=== PATIENT | male | born 1975 | race Two or more races ===

== ENCOUNTER 2024-04-30 19:29 | Emergency (ER) | payer OTHER, MEDICAID ==
[~2024-04-30] VITALS: Ht 167.6 cm; Wt 77.3 kg
[2024-04-30 20:39] LABS: Urine Bacteria FEW /hpf (None Seen); Urine Blood Negative /uL (Negative); Urine Clarity Clear (Clear); Urine Color Light-Yellow (Yellow); Urine Protein, UAD Negative (Negative); Urine Specific Gravity 1.009 (1.001-1.035); Urine Squamous Epithelial Cell FEW /hpf (<5); Urine Urobilinogen Normal (Negative); Urine WBC 5 /HPF (0-3)
[2024-04-30 20:49] LABS: Amphetamine Screen, Urine Pos (NEGATIVE)
[2024-04-30 20:53] LABS: Barbiturate Scree,Urine Neg (NEGATIVE); Benzodiazephine Screen, Urine Neg (NEGATIVE); Cannabinoid Screen, Urine Neg (NEGATIVE); Cocaine Screen, Urine Neg (NEGATIVE); Opiate Scree,Urine Neg (NEGATIVE); Phencyclidine Screen, Urine Neg (NEGATIVE)
[2024-04-30 21:06] LABS: Chloride 104 mmol/L (98-107); Potassium 4.4 mmol/L (3.5-5.1); Sodium 142 mmol/L (136-145)
[2024-04-30 21:07] LABS: Anion Gap 5 (5-15)
[2024-04-30 21:08] LABS: Calcium 9.9 mg/dL (8.7-10.4)
[2024-04-30 21:10] LABS: Basophils # (auto) 0.1 10 ^3/uL (0-0.2); Eosinophils # (auto) 0.5 10 ^3/uL (0-0.8); Eosinophils % (auto) 6.6 % (0.0-7.0); Hematocrit 46.6 % (41.0-53.0); Hemoglobin 15.5 g/dL (13.5-17.5); Lymphocytes # (auto) 2.5 10 ^3/uL (0.4-5.4); Mean Corpuscular Hemoglobin 30.1 pg (28.0-32.0); Mean Corpuscular Hgb Conc. 33.2 g/dL (32.0-36.0); Mean Corpuscular Volume 90.5 fL (80.0-100.0); Monocytes # (auto) 0.8 10 ^3/uL (0-1.3); Monocytes % (auto) 10.6 % (0.0-12.0); Neutrophils # (auto) 3.8 10 ^3/uL (1.6-8.6); Neutrophils % (auto) 49.8 % (37.0-80.0); Nucleated Red Blood Cells % 0.1 %; Platelet Count (auto) 363 10^3/uL (140-450); Red Blood Cells 5.15 10^6/uL (4.5-5.90); Red Cell Distribution Width 14.1 % (11.8-14.3); White Blood Cell 7.7 10^3/uL (4.4-10.8)
[2024-04-30 21:12] LABS: Glucose 95 mg/dL (74-106)
[2024-04-30 21:13] LABS: BUN/Creatinine Ratio 11.1 (10.0-20.0); Blood Urea Nitrogen 10 mg/dL (9-23)
[2024-04-30 21:17] LABS: Blood Alcohol < 3.0 mg/dL (<10); Carbon Dioxide 33 mmol/L (20-31)
[2024-04-30] MEDS ORDERED: ACET500T58 PO (21:45)
[2024-04-30] MEDS ORDERED: BACDST PO (21:45)
--- NOTE | 2024-04-30 21:45 | ED.PDOC ---
General HPI Comments This patient is a recently homeless 48-year-old male who arrives the ED today for evaluation of urinary discomfort. Patient states that the urinary pain began yesterday and has continued into today. Patient denies any fever nausea or vomiting. Patient was requesting a social service consult to aid him as he has only been homeless for two days and was hoping to receive assistance with housing concerns. Vital signs were stable on arrival. Chief Complaint: Urinary Time Seen by MD: 19:32 Reviewed notes: Nurses Notes Allergies: Coded Allergies: NO KNOWN ALLERGIES (Unverified , 04/30/24) Information Source: Patient Mode of Arrival: Ambulatory Severity: Moderate Timing: Days Duration: Since onset Prehospital treatment: None Onset: Spontaneous Symptoms: Dysuria History of: None associated signs and symptoms: Dysuria Past Medical History PAST MEDICAL HISTORY: Denies Surgical History: Denies all surgeries Family History Family History: Reviewed,noncontributory to illness, No family hx of Cancer, No family hx of DM, No family hx of Heart jimmy, No family hx of HTN, No family hx ofKidney jimmy, No family hx of Liver jimmy, No family hx of Lung jimmy, No family hx of Stroke Social History Smoker: Non-Smoker Alcohol: Denies ETOH Use Drugs: Methamphetamine Lives In: Homeless Constitutional: denies: chills, diaphoresis, fatigue, fever, malaise, sweats, weakness, others EENTM: denies: blurred vision, double vision, ear bleeding, ear discharge, ear drainage, ear pain, ear ringing, eye pain, eye redness, hearing loss, mouth pain, mouth swelling, nasal discharge, nose bleeding, nose congestion, nose pain, photophobia, tearing, throat pain, throat swelling, voice changes, others Respiratory: denies: cough, hemoptysis, orthopnea, SOB at rest, shortness of breath, SOB with excertion, stridor, wheezing, others Cardiovascular: denies: chest pain, dizzy spells, diaphoresis, Dyspnea on exertion, edema, irregular heart beat, left arm pain, lightheadedness, palpitations, PND, syncope, others Gastrointestinal: denies: abdomen distended, abdominal pain, blood streaked bowels, constipated, diarrhea, dysphagia, difficulty swallowing, hematemesis, melena, nausea, poor appetite, poor fluid intake, rectal bleeding, rectal pain, vomiting, others Genitourinary: reports: dysuria; denies: burning, flank pain, frequency, hematuria, incontinence, penile discharge, penile sore, pain, testicle pain, testicle swelling, urgency, others Neurological: denies: dizziness, fainting, headache, left sided numbness, left sided weakness, numbness, paresthesia, pre-existing deficit, right sided numbness, right sided weakness, seizure, speech problems, tingling, tremors, weakness, others Musculoskeletal: denies: back pain, gout, joint pain, joint swelling, muscle pain, muscle stiffness, neck pain, others Integumetry: denies: bruises, change in color, change in hair/nails, dryness, laceration, lesions, lumps, rash, wounds, others Allergic/Immunocompromised: denies: Difficulty Healing, Frequent Infections, Hives, Itching, others Hematologic/Lymphatic: denies: anemia, blood clots, easy bleeding, easy bruising, swollen glands, others Endocrine: denies: excessive hunger, excessive sweating, excessive thirst, excessive urination, flushing, intolerance to cold, intolerance to heat, unexplained weight gain, unexplained weight loss, others Psychiatric: denies: anxiety, bipolar disorder, depression, hopeless, panic disorder, schizophrenia, sleepless, suicidal, others Physical Exam General Appearance: Moderate Distress ([id number] distress due to urinary concerns as well as anxiety related to his homelessness.), Normal HEENT: Normal ENT Inspection, Pharynx Normal, TMs Normal Neck: Full Range of Motion, Non-Tender, Normal, Normal Inspection Respiratory: Chest Non-Tender, Lungs Clear, No Accessory Muscle Use, No Respiratory Distress, Normal Breath Sounds Cardiovascular: No Edema, No JVD, No Murmur, No Gallop, Normal Peripheral Pulses, Regular Rate/Rhythm Breast Exam: Deferred Gastrointestinal: No Organomegaly, Non Tender, No Pulsatile Mass, Normal Bowel Sounds, Soft Genitalia: Deferred Pelvic: Deferred Rectal: Deferred Extremities: No calf tenderness, Normal capillary refill, Normal inspection, Normal range of motion, Non-tender, No pedal edema Neurologic: Alert, No Motor Deficits, Normal Affect, Normal Mood, No Sensory Deficits Cerebellar Function: Normal Reflexes: Normal Skin: Dry, Normal Color, Warm Lymphatic: No Adenopathy Was a procedure done? Was a procedure done?: No Differential Diagnosis Kidney stone (Female): N/A Urinary Problem (Male): Other (UTI, pyelonephritis, illicit drug use, sepsis, electrolyte abnormality) X-Ray, Labs, Meds, VS Vital Signs Date Time Temp Pulse Resp B/P (MAP) Pulse Ox O2 Delivery O2 Flow Rate FiO2 04/30/24 20:12 98.5 80 20 101/68 (79) 96 Lab Test 04/30/24 20:25 04/30/24 20:10 Range/Units White Blood Count 7.7 4.4-10.8 10^3/uL Red Blood Count 5.15 4.5-5.90 10^6/uL Hemoglobin 15.5 13.5-17.5 g/dL Hematocrit 46.6 41.0-53.0 % Mean Corpuscular Volume 90.5 80.0-100.0 fL Mean Corpuscular Hemoglobin 30.1 28.0-32.0 pg Mean Corpuscular Hemoglobin Concent 33.2 32.0-36.0 g/dL Red Cell Distribution Width 14.1 11.8-14.3 % Platelet Count 363 140-450 10^3/uL Mean Platelet Volume 7.9 6.9-10.8 fL Neutrophils (%) (Auto) 49.8 37.0-80.0 % Lymphocytes (%) (Auto) 32.0 10.0-50.0 % Monocytes (%) (Auto) 10.6 0.0-12.0 % Eosinophils (%) (Auto) 6.6 0.0-7.0 % Basophils (%) (Auto) 1.0 0.0-2.0 % Neutrophils # (Auto) 3.8 1.6-8.6 10 ^3/uL Lymphocytes # (Auto) 2.5 0.4-5.4 10 ^3/uL Monocytes # (Auto) 0.8 0-1.3 10 ^3/uL Eosinophils # (Auto) 0.5 0-0.8 10 ^3/uL Basophils # (Auto) 0.1 0-0.2 10 ^3/uL Nucleated Red Blood Cells 0.1 % Sodium Level 142 136-145 mmol/L Potassium Level 4.4 3.5-5.1 mmol/L Chloride Level 104 98-107 mmol/L Carbon Dioxide Level 33 H 20-31 mmol/L Anion Gap 5 5-15 Blood Urea Nitrogen 10 9-23 mg/dL Creatinine 0.90 0.700-1.30 mg/dL Glomerular Filtration Rate Calc 104 >90 mL/min BUN/Creatinine Ratio 11.1 10.0-20.0 Serum Glucose 95 74-106 mg/dL Calcium Level 9.9 8.7-10.4 mg/dL Plasma/Serum Blood Alcohol < 3.0 <10 mg/dL Urine Color Light-yellow Yellow Urine Clarity Clear Clear Urine pH 5.0 5.0-9.0 Urine Specific [place] 1.009 1.001-1.035 Urine Protein Negative Negative Urine Ketones Negative Negative Urine Blood Negative Negative /uL Urine Nitrite Negative Negative Urine Bilirubin Negative Negative Urine Urobilinogen Normal Negative mg/dL Urine Leukocyte Esterase 1+ Negative /uL Urine RBC 1 0 - 3 /hpf Urine Microscopic WBC 5 H 0-3 /HPF Urine Squamous Epithelial Cells Few <5 /hpf Urine Bacteria Few H None Seen /hpf Urine Glucose Normal Normal mg/dL Urine Opiates Screen Neg NEGATIVE Urine Fentanyl Screen Neg NEGATIVE Urine Barbiturates Screen Neg NEGATIVE Urine Phencyclidine Screen Neg NEGATIVE Urine Amphetamines Screen Pos NEGATIVE Urine Benzodiazepines Screen Neg NEGATIVE Urine Cocaine Screen Neg NEGATIVE Urine Cannabinoids Screen Neg NEGATIVE X-Ray, Labs, Meds, VS Comment All studies performed the ED were evaluated by me personally. Serum studies were unremarkable for any acute global concern. Urinalysis revealed a urinary tract infection and drug screen profile was confirmation for methamphetamine use. Patient will remain in the ED and received his 1st dose of antibiotics while awaiting social service consult. Time of 1ST Reevaluation: 21:43 Reevaluation 1ST: Improved Consultation: PCP Patient Education/Counseling: Diagnosis, Treatment Family Education/Counseling: Diagnosis, Treatment Departure 1 Departure Time of Disposition: 21:43 Impression: Primary Impression: UTI (urinary tract infection) Disposition: HOME / SELF CARE / HOMELESS Condition: Stable Additional Instructions: Advised patient utilize antibiotics as directed until completion. Patient should practice good hydration and healthy nutrition throughout. e-Prescriptions Acetaminophen (Acetaminophen) 500 Mg Tab 500 MG PO Q4HP PRN, #20 TAB Prov: MARK STEELE PAC 04/30/24 Sulfamethoxazole W/Trimethopri (Bactrim Ds Tablet) 1 Tab Tb 1 TAB PO BID for 5 Days, #10 TAB Prov: MARK STEELE PAC 04/30/24 Discharged With: Self Critical Care Note Critical Care Time?: No Stability Stability form required: No Heart Score Heart Score: Heart Score Response (Comments) Value History N/A 0 EKG N/A 0 Age N/A 0 Risk Factors N/A 0 Troponin N/A 0 Total 0 MARK STEELE PAC Apr 30, 2024 21:45
[2024-04-30] MEDS: SULFAMETHOX W/TRIMETH(800/160MG) DS TAB PO ONE (23:19)
[2024-04-30 23:21] VITALS: BP 114/80; PULSE 58; RESP 18; TEMP 97.6; O2SAT 98
== END 2024-04-30 23:21 | disposition left against medical advice (07) ==
LOC: ER 19:29
DX: N39.0 Urinary tract infection, site not specified (principal); Z59.00 Homelessness unspecified; Z79.899 Other long term (current) drug therapy
CPT/HCPCS: 36415; 80048; 80307; 80320; 81001; 85025

== ENCOUNTER 2025-01-13 13:28 | Inpatient (IN) | payer OTHER, MEDICAID ==
[~2025-01-13] VITALS: Ht 167.6 cm; Wt 78.8 kg
[~2025-01-13 13:28] MED LIST: ACET500T58 PO; BACDST PO
--- NOTE | 2025-01-13 14:27 | ED.PDOC ---
History of Present Illness(SKN HPI Comments A 49 YEAR OLD FEMALE PRESENTS TO THE ED WITH COMPLAINT OF WOUND OF RIGHT LOWER LEG. PATIENT STATES HE HAS HAD A WOUND/POSSIBLE ABSCESS ON HIS RIGHT LOWER LEG WITH REDNESS, SWELLING, AND PAIN FOR THE PAST 4 DAYS WITH HIS SYMPTOMS WORSENING OVER THE PAST 2 DAYS. PATIENT REPORTS HE ALSO HAS DRAINAGE TO THE AREA. PATIENT DENIES FEVER, CHILLS, SHORTNESS OF BREATH, CHEST PAIN, ABDOMINAL PAIN, NAUSEA, VOMITING, HEADACHE, OR OTHER COMPLAINTS. NO OTHER SYMPTOMS OR MODIFYING FACTORS AT THIS TIME. PATIENT IS ALERT, ORIENTED X 4, AND HAS STEADY GAIT. Chief Complaint: Lower Extremity Time Seen by MD: 13:33 History of Present Illness: Nurses Notes, Medications, Allergies Allergies: Coded Allergies: NO KNOWN ALLERGIES (Unverified , 04/30/24) Home Meds Active Scripts Acetaminophen (Acetaminophen) 500 Mg Tab, 500 MG PO Q4HP PRN, #20 TAB Prov:MARK STEELE PAC 04/30/24 Sulfamethoxazole W/Trimethopri (Bactrim Ds Tablet) 1 Tab Tb, 1 TAB PO BID for 5 Days, #10 TAB Prov:MARK STEELE PAC 04/30/24 Reported Medications Cyanocobalamin (Gnp Vitamin B12) 500 Mcg Tab, 1 TAB PO DAILY 01/13/25 Cholecalciferol (VITAMIN D3) 5,000 Unit Cap, 1 CAP PO DAILY 01/13/25 Information Source: Patient Mode of Arrival: Ambulatory Severity: Moderate Timing: Days Duration: Since onset Prehospital treatment: None Location: Leg (RIGHT LOWER LEG ) Mechanism: Insect Occurence: Indoors Object: None Condition of Object: None Retained Foreign Body: No Wound Type: Abscess Immunization Status of Animal: NA Tetanus: Unknown History of: None Associated Signs and Symptoms: Redness, Swelling, Pus, Pain Past Medical History PAST MEDICAL HISTORY: Denies Surgical History: Denies all surgeries Family History Family History: Reviewed,noncontributory to illness, No family hx of Cancer, No family hx of DM, No family hx of Heart jimmy, No family hx of HTN, No family hx ofKidney jimmy, No family hx of Liver jimmy, No family hx of Lung jimmy, No family hx of Stroke Social History Smoker: Non-Smoker Alcohol: Denies ETOH Use Drugs: Methamphetamine Lives In: Homeless Constitutional: denies: chills, diaphoresis, fatigue, fever, malaise, sweats, weakness, others EENTM: denies: blurred vision, double vision, ear bleeding, ear discharge, ear drainage, ear pain, ear ringing, eye pain, eye redness, hearing loss, mouth pain, mouth swelling, nasal discharge, nose bleeding, nose congestion, nose pain, photophobia, tearing, throat pain, throat swelling, voice changes, others Respiratory: denies: cough, hemoptysis, orthopnea, SOB at rest, shortness of breath, SOB with excertion, stridor, wheezing, others Cardiovascular: denies: chest pain, dizzy spells, diaphoresis, Dyspnea on exertion, edema, irregular heart beat, left arm pain, lightheadedness, palpitations, PND, syncope, others Gastrointestinal: denies: abdomen distended, abdominal pain, blood streaked bowels, constipated, diarrhea, dysphagia, difficulty swallowing, hematemesis, melena, nausea, poor appetite, poor fluid intake, rectal bleeding, rectal pain, vomiting, others Genitourinary: denies: burning, dysuria, flank pain, frequency, hematuria, incontinence, penile discharge, penile sore, pain, testicle pain, testicle swelling, urgency, others Neurological: denies: dizziness, fainting, headache, left sided numbness, left sided weakness, numbness, paresthesia, pre-existing deficit, right sided numbness, right sided weakness, seizure, speech problems, tingling, tremors, weakness, others Musculoskeletal: denies: back pain, gout, joint pain, joint swelling, muscle pain, muscle stiffness, neck pain, others Integumetry: reports: lesions, wounds, others (INSECT BITE/ABSCESS OF RIGHT LOWER LEG); denies: bruises, change in color, change in hair/nails, dryness, laceration, lumps, rash Allergic/Immunocompromised: denies: Difficulty Healing, Frequent Infections, Hives, Itching, others Hematologic/Lymphatic: denies: anemia, blood clots, easy bleeding, easy bruising, swollen glands, others Endocrine: denies: excessive hunger, excessive sweating, excessive thirst, excessive urination, flushing, intolerance to cold, intolerance to heat, unexplained weight gain, unexplained weight loss, others Psychiatric: denies: anxiety, bipolar disorder, depression, hopeless, panic disorder, schizophrenia, sleepless, suicidal, others All Other Systems: Reviewed and Negative Physical Exam General Appearance: No Apparent Distress, Normal HEENT: Normal ENT Inspection, PERRL/EOMI, Pharynx Normal, TMs Normal Neck: Full Range of Motion, Non-Tender, Normal, Normal Inspection Respiratory: Chest Non-Tender, Lungs Clear, No Accessory Muscle Use, No Respiratory Distress, Normal Breath Sounds Cardiovascular: No Edema, No JVD, No Murmur, No Gallop, Normal Peripheral Pulses, Regular Rate/Rhythm Breast Exam: Deferred Gastrointestinal: No Organomegaly, Non Tender, No Pulsatile Mass, Normal Bowel Sounds, Soft Genitalia: Deferred Pelvic: Deferred Rectal: Deferred Extremities: Decreased range of motion, Leg edema, No calf tenderness, Normal capillary refill, No pedal edema, Tender (TENDERNESS WITH ERYTHEMA AND SWELLING AND OPEN WOUND ON RIGHT ANTERIOR LOWER LEG. NO DVT SIGNS. +CELLULITIS AND ABSCESS.) Musculoskeletal : Apperance: Normal Neurologic: Alert, miner operator II-XII nml as Tested, No Motor Deficits, Normal Affect, Normal Mood, No Sensory Deficits Cerebellar Function: Normal Reflexes: Normal Skin: Dry, Normal Color, Warm, Wounds (LOCALIZED REDNESS, FLUCTUANCE, AND SWELLING NOTED TO RIGHT ANTERIOR LOWER LEG WITH PUS DRAINAGE.) Peripheral Pulses: 2+ carotid (R), 2+ carotid (L), 2+ dorsalis pedis (R), 2+ dorsalis pedis (L) Lymphatic: No Adenopathy Was a procedure done? Was a procedure done?: Yes Sedation Sedation?: No Incision and Drainage Incision and Drainage: Abscess Location RIGHT LOWER LEG Anesthetic: Lidocaine Preparation: Betadine, Saline Incision and Wound: Pus, Blood, Amount, Irrigated, Packed Informed consent obtained: No Risks/benefits/alt described: Yes Images 1 - Differential Diagnosis (INTG) Differential Diagnosis: Abrasion, Cellulitis, Insect Envenomation, Puncture Wound Differential Diagnosis: Abscess, Cellulitis, N/A Abscess: Abscess, Cellulitis, Erysipelas, Felon Differential Diagnosis: N/A X-Ray, Labs, Meds, VS Vital Signs Date Time Temp Pulse Resp B/P (MAP) Pulse Ox O2 Delivery O2 Flow Rate FiO2 01/13/25 14:14 98.6 111 16 127/81 (96) 96 98.6 01/13/25 13:31 97.6 111 16 127/81 96 97.6 Lab Test 01/13/25 14:39 01/13/25 14:34 01/13/25 14:20 Range/Units White Blood Count 18.9 H 4.4-10.8 10^3/uL Red Blood Count 5.30 4.5-5.90 10^6/uL Hemoglobin 16.0 13.5-17.5 g/dL Hematocrit 46.2 41.0-53.0 % Mean Corpuscular Volume 87.2 80.0-100.0 fL Mean Corpuscular Hemoglobin 30.3 28.0-32.0 pg Mean Corpuscular Hemoglobin Concent 34.8 32.0-36.0 g/dL Red Cell Distribution Width 12.9 11.8-14.3 % Platelet Count 284 140-450 10^3/uL Mean Platelet Volume 9.7 6.9-10.8 fL Neutrophils (%) (Auto) 81.5 H 37.0-80.0 % Lymphocytes (%) (Auto) 9.1 L 10.0-50.0 % Monocytes (%) (Auto) 7.3 0.0-12.0 % Eosinophils (%) (Auto) 1.8 0.0-7.0 % Basophils (%) (Auto) 0.3 0.0-2.0 % Neutrophils # (Auto) 15.4 H 1.6-8.6 10 ^3/uL Lymphocytes # (Auto) 1.7 0.4-5.4 10 ^3/uL Monocytes # (Auto) 1.4 H 0-1.3 10 ^3/uL Eosinophils # (Auto) 0.3 0-0.8 10 ^3/uL Basophils # (Auto) 0.1 0-0.2 10 ^3/uL Nucleated Red Blood Cells 0.1 % Sodium Level 139 136-145 mmol/L Potassium Level 3.5 3.5-5.1 mmol/L Chloride Level 103 98-107 mmol/L Carbon Dioxide Level 24 20-31 mmol/L Anion Gap 12 5-15 Blood Urea Nitrogen 15 9-23 mg/dL Creatinine 0.89 0.700-1.30 mg/dL Glomerular Filtration Rate Calc 104 >90 mL/min BUN/Creatinine Ratio 16.9 10.0-20.0 Serum Glucose 112 H 74-106 mg/dL Calcium Level 9.1 8.7-10.4 mg/dL Lactic Acid Level 1.9 0.4-2.0 mmol/L Urine Color Light-yellow Yellow Urine Clarity Clear Clear Urine pH 5.5 5.0-9.0 Urine Specific [place] 1.011 1.001-1.035 Urine Protein Negative Negative Urine Ketones Negative Negative Urine Blood Negative Negative /uL Urine Nitrite Negative Negative Urine Bilirubin Negative Negative Urine Urobilinogen Normal Negative mg/dL Urine Leukocyte Esterase Negative Negative /uL Urine RBC 2 0 - 3 /hpf Urine Microscopic WBC 2 0-3 /HPF Urine Squamous Epithelial Cells Few <5 /hpf Urine Bacteria None seen None Seen /hpf Urine Mucus Few None Seen Urine Glucose Normal Normal mg/dL Urine Opiates Screen Neg NEGATIVE Urine Fentanyl Screen Neg NEGATIVE Urine Barbiturates Screen Neg NEGATIVE Urine Phencyclidine Screen Neg NEGATIVE Urine Amphetamines Screen Pos NEGATIVE Urine Benzodiazepines Screen Neg NEGATIVE Urine Cocaine Screen Neg NEGATIVE Urine Cannabinoids Screen Neg NEGATIVE Current Medications Medications (Trade) Dose Ordered Sig/Ignacia Route Start Time Stop Time Status Last Admin Ceftriaxone Sodium 50 ml @ 100 mls/hr ONCE ONCE IV 01/13/25 14:45 01/13/25 15:14 DC 01/13/25 16:37 Clindamycin Phosphate 50 ml @ 50 mls/hr ONCE ONCE IV 01/13/25 14:45 01/13/25 15:44 DC 01/13/25 16:37 Ketorolac Tromethamine (Toradol Injection) 30 mg ONCE ONCE IV 01/13/25 14:45 01/13/25 14:46 DC 01/13/25 16:37 X-Ray, Labs, Meds, VS Comment EXTERNAL MEDICAL RECORDS REVIEWED: [NONE] INDEPENDENT HISTORIANS: [NONE] SOCIAL DETERMINANTS OF HEALTH: PATIENT IS CURRENTLY HOMELESS LABS ORDERED: CBC, BMP, LACTIC ACID W/REFLEX, BLOOD CULTURE, UDS REVIEWED AND INTERPRETED RESULTS: AMPH POSITIVE, WBC 18.9 IMAGING ORDERED: NONE TREATMENTS ORDERED: NS 1 L IV, ROCEPHIN 1 G IV, CLINDAMYCIN 900 MG IV, TORADOL 30 MG IV PROCEDURES PERFORMED: NONE CRITICAL CARE TIME: NONE I HAVE DISCUSSED THE PATIENT WITH THE ATTENDING PHYSICIAN DR. FLORES AND HE AGREES WITH THE PATIENT'S PLAN OF CARE. UPON MY PHYSICAL EXAMINATION, THE PATIENT HAD A WOUND/ABSCESS ON HIS ANTERIOR RIGHT LOWER LEG WITH REDNESS, SWELLING, FLUCTUANCE, AND DRAINAGE CONSISTENT WITH AN ABSCESS. THE WOUND WAS INCISED AND DRAINED BY ME AND WRAPPED WITH STERILE GAUZE. DUE TO THE PATIENT'S CLINICAL EXAM FINDINGS SUGGESTING ABSCESS WITH SURROUNDING CELLULITIS, AND THE FACT THAT THE PATIENT IS HOMELESS AND HAS AN INABILITY TO TRAVEL TO A LOCAL PHARMACY AND CUSTOMER ASSISTANT PRESCRIPTIONS, I HAVE DETERMINED THE PATIENT NEEDS TO BE ADMITTED FOR FURTHER TREATMENT AND EVALUATION. THE ON-CALL HOSPITALIST WILL BE CONTACTED FOR ADMISSION OF THIS PATIENT.. Time of 1ST Reevaluation: 16:00 Reevaluation 1ST: Unchanged Patient Education/Counseling: Diagnosis, Treatment Family Education/Counseling: Diagnosis, Treatment SEPSIS Sepsis Screen Date sepsis recognized/suspect: Jan 13, 2025 Time Sepsis recognized/suspect: 1330 Recent Procedure: No On Antibiotic Therapy: No Respiratory Rate >20: No Heart Rate >90: Yes Temp<36 C (96.8 F) or >38.3 C: No SBP <90 or MAP <65 mmHG: No New Acute Mental Status Change: No Is the patient on CPAP, BIPAP,: No Physician Orders Blood Culture (01/13/25 14:22) Wound Culture W/ Gs (01/13/25 14:22) Heplock Iv (01/13/25 ) Vital Signs Date Time Temp Pulse Resp B/P (MAP) Pulse Ox O2 Delivery O2 Flow Rate FiO2 01/13/25 14:14 98.6 111 16 127/81 (96) 96 98.6 01/13/25 13:31 97.6 111 16 127/81 96 97.6 Laboratory Tests Test 01/13/25 14:34 01/13/25 14:39 Lactic Acid Level 1.9 mmol/L (0.4-2.0) White Blood Count 18.9 10^3/uL (4.4-10.8) H Medications Medications Dose Ordered Sig/Ignacia Route Start Time Stop Time Status Last Admin Dose Admin Ceftriaxone Sodium 50 ml @ 100 mls/hr ONCE ONCE IV 01/13/25 14:45 01/13/25 15:14 DC 01/13/25 16:37 Clindamycin Phosphate 50 ml @ 50 mls/hr ONCE ONCE IV 01/13/25 14:45 01/13/25 15:44 DC 01/13/25 16:37 Ketorolac Tromethamine 30 mg ONCE ONCE IV 01/13/25 14:45 01/13/25 14:46 DC 01/13/25 16:37 Departure 1 Departure Time of Disposition: 16:00 Impression: Primary Impression: Abscess of right lower leg Additional Impression: Cellulitis of right lower leg Disposition: ADMITTED INPATIENT Condition: Serious Critical Care Note Critical Care Time?: No Stability Stability form required: Yes Unstable for transfer: Requires medication, ED Physician Assesment, Possible rapid decline I personally scribed for KATE SANDERS ([email or web address]) on 01/13/25 at 14:27. Electronically submitted by Kleber Banks ([email or web address]). I personally scribed for KATE SANDERS ([email or web address]) on 01/13/25 at 15:08. Electronically submitted by Kleber Banks ([email or web address]). KATE SANDERS Jan 13, 2025 14:27
[2025-01-13 15:08] LABS: Hematocrit 46.2 % (41.0-53.0); Hemoglobin 16.0 g/dL (13.5-17.5); Mean Corpuscular Hemoglobin 30.3 pg (28.0-32.0); Mean Corpuscular Volume 87.2 fL (80.0-100.0); Nucleated Red Blood Cells % 0.1 %
[2025-01-13 15:20] LABS: Chloride 103 mmol/L (98-107); Potassium 3.5 mmol/L (3.5-5.1); Sodium 139 mmol/L (136-145)
[2025-01-13 15:21] LABS: Anion Gap 12 (5-15); Calcium 9.1 mg/dL (8.7-10.4); Carbon Dioxide 24 mmol/L (20-31)
[2025-01-13 15:26] LABS: BUN/Creatinine Ratio 16.9 (10.0-20.0); Blood Urea Nitrogen 15 mg/dL (9-23)
[2025-01-13 15:28] LABS: Glucose 112 mg/dL (74-106)
[2025-01-13 15:32] LABS: Amphetamine Screen, Urine Pos (NEGATIVE); Barbiturate Scree,Urine Neg (NEGATIVE); Benzodiazephine Screen, Urine Neg (NEGATIVE); Cannabinoid Screen, Urine Neg (NEGATIVE); Cocaine Screen, Urine Neg (NEGATIVE); Opiate Scree,Urine Neg (NEGATIVE); Phencyclidine Screen, Urine Neg (NEGATIVE)
[2025-01-13] MEDS ORDERED: ONDANSETRON HCL 4 MG/2 ML VIAL IV PRN (16:00)
[2025-01-13] MEDS ORDERED: ACETAMINOPHEN 325 MG TAB PO PRN (16:00)
[2025-01-13] MEDS ORDERED: VANCOMYCIN PER PHARMACY 0 MG IV SCH (16:00)
[2025-01-13] MEDS ORDERED: MORPHINE SULFATE INJ 2 MG/ml SYRG IV PRN (16:00)
--- NOTE | 2025-01-13 16:29 | DVHHP2 ---
History of Present Illness Reason for Visit: Right lower extremity abscess History of Present Illness Fly Bliss is a 49-year-old male with past medical history of right clavicle surgery who presents to the ED with right lower extremity wound versus abscess that started 4 days ago. He reports that his pain is currently 1/10 throbbing and constant. Patient reports that there was drainage to the area right and pus like and bloody. Patient reports that he does not know how it happened. He does report that he lives in a homeless [facility] and stays on the [facility]. He also reports that he smokes cigarettes daily. Patient denies any recent ingestion of spoiled food, recent trauma or injury, recent sick contacts, chest pain, shortness of breath, fever, chills, lightheadedness, weakness, dizziness, abdominal pain, nausea, diarrhea, or urinary symptoms. Past Surgical History: Other (Right clavicle surgery) Family History: None Smoke: <1 pack per day ALCOHOL: none Drugs: None Lives: Homeless Domestic Violence: Neg Review of Systems Musculoskeletal: other (Right lower extremity abscess) Allergies: Coded Allergies: NO KNOWN ALLERGIES (Unverified , 04/30/24) Exam Vital Signs Vital Signs Date Time Temp Pulse Resp B/P (MAP) Pulse Ox O2 Delivery O2 Flow Rate FiO2 01/13/25 14:14 98.6 111 16 127/81 (96) 96 98.6 General Appearance: Alert, Oriented X3, Cooperative, No acute distress HEENT: Atraumatic, PERRLA, EOMI, Mucous membr. moist/pink Respiratory: Normal air movement Cardiovascular: Normal S1, Normal S2 Abdominal: Normal bowel sounds, Soft Neuro: Normal gait, Normal speech, Strength at 5/5 X4 ext, Normal tone, Sensation intact Psych/Mental Status: Mental status NL, Mood NL Labs/Xrays Labs Test 01/13/25 14:39 01/13/25 14:34 01/13/25 14:20 Range/Units White Blood Count 18.9 H 4.4-10.8 10^3/uL Red Blood Count 5.30 4.5-5.90 10^6/uL Hemoglobin 16.0 13.5-17.5 g/dL Hematocrit 46.2 41.0-53.0 % Mean Corpuscular Volume 87.2 80.0-100.0 fL Mean Corpuscular Hemoglobin 30.3 28.0-32.0 pg Mean Corpuscular Hemoglobin Concent 34.8 32.0-36.0 g/dL Red Cell Distribution Width 12.9 11.8-14.3 % Platelet Count 284 140-450 10^3/uL Mean Platelet Volume 9.7 6.9-10.8 fL Neutrophils (%) (Auto) 81.5 H 37.0-80.0 % Lymphocytes (%) (Auto) 9.1 L 10.0-50.0 % Monocytes (%) (Auto) 7.3 0.0-12.0 % Eosinophils (%) (Auto) 1.8 0.0-7.0 % Basophils (%) (Auto) 0.3 0.0-2.0 % Neutrophils # (Auto) 15.4 H 1.6-8.6 10 ^3/uL Lymphocytes # (Auto) 1.7 0.4-5.4 10 ^3/uL Monocytes # (Auto) 1.4 H 0-1.3 10 ^3/uL Eosinophils # (Auto) 0.3 0-0.8 10 ^3/uL Basophils # (Auto) 0.1 0-0.2 10 ^3/uL Nucleated Red Blood Cells 0.1 % Sodium Level 139 136-145 mmol/L Potassium Level 3.5 3.5-5.1 mmol/L Chloride Level 103 98-107 mmol/L Carbon Dioxide Level 24 20-31 mmol/L Anion Gap 12 5-15 Blood Urea Nitrogen 15 9-23 mg/dL Creatinine 0.89 0.700-1.30 mg/dL Glomerular Filtration Rate Calc 104 >90 mL/min BUN/Creatinine Ratio 16.9 10.0-20.0 Serum Glucose 112 H 74-106 mg/dL Calcium Level 9.1 8.7-10.4 mg/dL Lactic Acid Level 1.9 0.4-2.0 mmol/L Urine Opiates Screen Neg NEGATIVE Urine Fentanyl Screen Neg NEGATIVE Urine Barbiturates Screen Neg NEGATIVE Urine Phencyclidine Screen Neg NEGATIVE Urine Amphetamines Screen Pos NEGATIVE Urine Benzodiazepines Screen Neg NEGATIVE Urine Cocaine Screen Neg NEGATIVE Urine Cannabinoids Screen Neg NEGATIVE Technique: Real-time ultrasound imaging, with color Doppler and compression of the right common femoral vein, femoral vein, greater saphenous vein, and popliteal vein. Indication: pain Comparison: None Findings: There is normal compressibility and flow augmentation in all of the imaged deep veins. There are no filling defects. Right inguinal lymph node that is primarily hypoechoic measuring 2.3 x 0.9 cm. Impression: No evidence of DVT in the right lower extremity. Right inguinal lymphadenopathy. Correlate for infectious, inflammatory, neoplas tic etiologies SEPSIS Sepsis Screen Date sepsis recognized/suspect: Jan 13, 2025 Time Sepsis recognized/suspect: 1331 Recent Procedure: No On Antibiotic Therapy: No Respiratory Rate >20: No Heart Rate >90: Yes Temp<36 C (96.8 F) or >38.3 C: No SBP <90 or MAP <65 mmHG: No New Acute Mental Status Change: No Is the patient on CPAP, BIPAP,: No Physician Orders Blood Culture (01/13/25 14:22) Wound Culture W/ Gs (01/13/25 14:22) Heplock Iv (01/13/25 ) Vital Signs Date Time Temp Pulse Resp B/P (MAP) Pulse Ox O2 Delivery O2 Flow Rate FiO2 01/13/25 14:14 98.6 111 16 127/81 (96) 96 98.6 01/13/25 13:31 97.6 111 16 127/81 96 97.6 Laboratory Tests Test 01/13/25 14:34 01/13/25 14:39 Lactic Acid Level 1.9 mmol/L (0.4-2.0) White Blood Count 18.9 10^3/uL (4.4-10.8) H Assessment/Plan Assessment/Plan Assessment Right lower extremity wound versus abscess Leukocytosis likely due to abscess Positive amphetamines Tobacco use History of right clavicle surgery Plan Admit to [facility] IV antibiotics-vancomycin +Zosyn Clindamycin +ceftriaxone given in ED Lactic level Wound culture with Gram stain Blood cultures UA UDS Right lower extremity venous ultrasound Diet Home medications reconciled DVT prophylaxis-Lovenox PUD prophylaxis-not indicated no history of GERD or GI bleed Discussed plan of care with patient and nurse Patient homeless Counseled patient on cessation of drug and tobacco use [id number] Behavior change smoking greater than 10 minutes about use of other options also gave option of nicotine patch [id number] Preventive counseling healthy eating habits, physical activity, and regular checkups Plan discussed with: Patient Date of Service: Jan 13, 2025 Billing Provider: TERRANCE GURROLA Common Visit Codes: [id number] INP/OBS CARE (HIGH) Secondary Visit Codes: [id number] COUNSELING IND, [id number] CHNG SMOKING >10MIN TERRANCE GURROLA STEM SHAPER Jan 13, 2025 16:29
[2025-01-13] MEDS ORDERED: CYAN500T3 PO (16:30)
[2025-01-13] MEDS ORDERED: CHOL50007 PO (16:30)
[2025-01-13 16:34] LABS: Urine Protein, UAD Negative (Negative)
[2025-01-13] MEDS: KETOROLAC TROMETH 30 MG/ML 1ML VIAL IV ONE (16:37)
[2025-01-13] MEDS: CLINDAMYCIN 900MG IV 50 ML IV ONE (16:37)
--- NOTE | 2025-01-13 17:06 | DVH ---
Technique: Real-time ultrasound imaging, with color Doppler and compression of the right common femoral vein, femoral vein, greater saphenous vein, and popliteal vein. Indication: pain Comparison: None Findings: There is normal compressibility and flow augmentation in all of the imaged deep veins. There are no filling defects. Right inguinal lymph node that is primarily hypoechoic measuring 2.3 x 0.9 cm. Impression: No evidence of DVT in the right lower extremity. Right inguinal lymphadenopathy. Correlate for infectious, inflammatory, neoplastic etiologies
[2025-01-13] MEDS: VANCOMYCIN 750MG KIT 100 ML IV SCH (18:50)
[2025-01-13 20:00] VITALS: PULSE 73; RESP 16
[2025-01-13 20:53] VITALS: BP 114/72; PULSE 89; RESP 18; TEMP 98; O2SAT 97
[2025-01-13] MEDS: PIPERACILLIN-TAZOB 3.375GM 100 ML IV SCH (23:58)
[2025-01-14] VITALS (7 sets, daily range): BP systolic 94–124; BP diastolic 64–79; PULSE 74–99; RESP 16–18; TEMP 97.9–98.9; O2SAT 93–98
[2025-01-14] MEDS: HYDROcodone-ACET 5/325MG TAB PO PRN (06:52)
[2025-01-14 07:43] LABS: Hematocrit 40.7 % (41.0-53.0); Hemoglobin 14.1 g/dL (13.5-17.5); Mean Corpuscular Hemoglobin 30.5 pg (28.0-32.0); Mean Corpuscular Volume 87.8 fL (80.0-100.0); Nucleated Red Blood Cells % 0.1 %
[2025-01-14 08:09] LABS: Alanine Aminotransferase 15 U/L (7-40); Albumin 3.6 g/dL (3.2-4.8); Alkaline Phosphatase 97 U/L (46-116); Anion Gap 11 (5-15); BUN/Creatinine Ratio 19.1 (10.0-20.0); Blood Urea Nitrogen 17 mg/dL (9-23); Carbon Dioxide 25 mmol/L (20-31); Chloride 104 mmol/L (98-107); Potassium 3.5 mmol/L (3.5-5.1); Sodium 140 mmol/L (136-145); Total Protein 6.7 g/dL (5.7-8.2)
[2025-01-14 08:10] LABS: Bilirubin, Total 1.0 mg/dL (0.2-1.0)
[2025-01-14 08:11] LABS: Calcium 8.5 mg/dL (8.7-10.4); Glucose 116 mg/dL (74-106)
[2025-01-14] MEDS: ENOXAPARIN SOD 40 MG/0.4 ML SYRINGE SC SCH (09:18)
[2025-01-14] MEDS: CHOLECALCIFEROL (VITD3) 1,000UNIT=25mCg TAB PO SCH (09:18)
[2025-01-14] MEDS: CYANOCOBALAMIN 500 MCG TAB PO SCH (09:18)
--- NOTE | 2025-01-14 10:08 | DVHPN2 ---
Subjective 49 year old man, homeless [facility] at a [facility] with a wound on his right bertrand. He doesn't know how he got it He says he is not diabetic Changes from previous H/P or p: Changes Musculoskeletal: other (Right lower extremity abscess) Objective Vitals Vital Signs Date Time Temp Pulse Resp B/P (MAP) Pulse Ox O2 Delivery O2 Flow Rate FiO2 01/14/25 09:08 98.0 75 18 103/71 (82) 95 98.0 01/14/25 08:09 Room Air* 0 21 Intake/Output Intake and Output 01/14/25 07:00 Intake Total 660 ml Balance 660 ml Intake Oral 660 ml # Voids 1 General Appearance: Alert, Oriented X3, Cooperative, No acute distress Lungs: Clear to auscultation, Normal air movement Cardiovascular: Regular rate, Normal S1, Normal S2, No murmurs Abdomen: Normal bowel sounds, Soft, No tenderness Extremities: No edema (Right bertrand area edema and erythema with open wound with packing) Medications Current Medications Medications Dose Ordered Sig/Ignacia Route Start Time Stop Time Status Last Admin Dose Admin Vancomycin HCl 0 ml @ 0 mls/hr PER PHARMACY IV 01/13/25 16:00 Piperacillin Sod/ Tazobactam Sod 100 ml @ 25 mls/hr Q8HR IV 01/13/25 22:00 01/14/25 06:44 25 MLS/HR Acetaminophen/ Hydrocodone Bitart 1 tab Q4HP PRN PO 01/13/25 16:00 01/14/25 06:52 1 TAB Ondansetron HCl 4 mg Q4HP PRN IV 01/13/25 16:00 Enoxaparin Sodium 40 mg DAILY SC 01/14/25 10:00 01/14/25 09:18 40 MG Acetaminophen 650 mg Q6HP PRN PO 01/13/25 16:00 Morphine Sulfate 2 mg Q4HPRN PRN IV 01/13/25 16:00 Cyanocobalamin 500 mcg DAILY PO 01/14/25 10:00 01/14/25 09:18 500 MCG Cholecalciferol 5,000 unit DAILY PO 01/14/25 10:00 01/14/25 09:18 5,000 UNIT Vancomycin HCl 100 ml @ 100 mls/hr Q12H IV 01/13/25 18:00 01/14/25 06:44 100 MLS/HR Laboratory Results Laboratory Tests 01/14/25 06:35 Chemistry Test 01/13/25 14:39 01/14/25 06:35 Calcium Level 9.1 mg/dL (8.7-10.4) 8.5 mg/dL (8.7-10.4) L Albumin 3.6 g/dL (3.2-4.8) Total Protein 6.7 g/dL (5.7-8.2) LFT Test 01/14/25 06:35 Alanine Aminotransferase (ALT) 15 U/L (7-40) Alkaline Phosphatase 97 U/L (46-116) Aspartate Amino Transferase (AST) 18 U/L (13-40) Total Bilirubin 1.0 mg/dL (0.2-1.0) Urinalysis Test 01/13/25 14:20 Urine Color Light-yellow (Yellow) Urine Clarity Clear (Clear) Urine pH 5.5 (5.0-9.0) Urine Specific [place] 1.011 (1.001-1.035) Urine Protein Negative (Negative) Urine Ketones Negative (Negative) Urine Blood Negative /uL (Negative) Urine Nitrite Negative (Negative) Urine Bilirubin Negative (Negative) Urine Urobilinogen Normal mg/dL (Negative) Urine Leukocyte Esterase Negative /uL (Negative) Urine RBC 2 /hpf (0 - 3) Urine Microscopic WBC 2 /HPF (0-3) Urine Squamous Epithelial Cells Few /hpf (<5) Urine Bacteria None seen /hpf (None Seen) Urine Mucus Few (None Seen) Urine Glucose Normal mg/dL (Normal) Assessment/Plan Assessment/Plan RLE wound, cellulitis with abscess s/p I&D and packing Cellulitis Abscess Homeless Positive amphetamines Tobacco use History of right clavicle surgery PLAN: IV Zosyn and Vancomycin Daily dressings Watch closely Plan discussed with: Patient Date of Service: Jan 14, 2025 Billing Provider: AUTUMN HO MD Common Visit Codes: NOT BILLABLE AUTUMN HO MD Jan 14, 2025 10:08
[2025-01-15] VITALS (9 sets, daily range): BP systolic 106–121; BP diastolic 71–79; PULSE 85–98; RESP 17–19; TEMP 98.1–99.7; O2SAT 90–99
[2025-01-15 07:26] LABS: Hematocrit 41.4 % (41.0-53.0); Hemoglobin 14.5 g/dL (13.5-17.5); Mean Corpuscular Hemoglobin 30.9 pg (28.0-32.0); Mean Corpuscular Volume 88.7 fL (80.0-100.0); Nucleated Red Blood Cells % 0.0 %
--- NOTE | 2025-01-15 13:18 | DVHPN2 ---
Subjective No new complaints Changes from previous H/P or p: Changes Musculoskeletal: other (Right lower extremity abscess) Objective Vitals Vital Signs Date Time Temp Pulse Resp B/P (MAP) Pulse Ox O2 Delivery O2 Flow Rate FiO2 01/15/25 09:00 98.1 92 17 121/71 (88) 96 98.1 01/15/25 08:00 Room Air* 0 21 Intake/Output Intake and Output 01/15/25 07:00 Intake Total 1100 ml Balance 1100 ml Intake Oral 700 ml IV Total 400 ml # Voids 3 General Appearance: Alert, Oriented X3, Cooperative, No acute distress Lungs: Clear to auscultation, Normal air movement Cardiovascular: Regular rate, Normal S1, Normal S2, No murmurs Abdomen: Normal bowel sounds, Soft, No tenderness Extremities: No edema (Right bertrand area edema and erythema with open wound with packing) Medications Current Medications Medications Dose Ordered Sig/Ignacia Route Start Time Stop Time Status Last Admin Dose Admin Vancomycin HCl 0 ml @ 0 mls/hr PER PHARMACY IV 01/13/25 16:00 Piperacillin Sod/ Tazobactam Sod 100 ml @ 25 mls/hr Q8HR IV 01/13/25 22:00 01/15/25 06:18 25 MLS/HR Acetaminophen/ Hydrocodone Bitart 1 tab Q4HP PRN PO 01/13/25 16:00 01/14/25 21:58 1 TAB Ondansetron HCl 4 mg Q4HP PRN IV 01/13/25 16:00 Enoxaparin Sodium 40 mg DAILY SC 01/14/25 10:00 01/15/25 10:53 40 MG Acetaminophen 650 mg Q6HP PRN PO 01/13/25 16:00 Morphine Sulfate 2 mg Q4HPRN PRN IV 01/13/25 16:00 Cyanocobalamin 500 mcg DAILY PO 01/14/25 10:00 01/15/25 10:54 500 MCG Cholecalciferol 5,000 unit DAILY PO 01/14/25 10:00 01/15/25 10:54 5,000 UNIT Vancomycin HCl 100 ml @ 100 mls/hr Q12H IV 01/13/25 18:00 01/15/25 05:16 100 MLS/HR Laboratory Results Laboratory Tests 01/14/25 06:35 01/15/25 06:23 Urinalysis Test 01/13/25 14:20 Urine Color Light-yellow (Yellow) Urine Clarity Clear (Clear) Urine pH 5.5 (5.0-9.0) Urine Specific [place] 1.011 (1.001-1.035) Urine Protein Negative (Negative) Urine Ketones Negative (Negative) Urine Blood Negative /uL (Negative) Urine Nitrite Negative (Negative) Urine Bilirubin Negative (Negative) Urine Urobilinogen Normal mg/dL (Negative) Urine Leukocyte Esterase Negative /uL (Negative) Urine RBC 2 /hpf (0 - 3) Urine Microscopic WBC 2 /HPF (0-3) Urine Squamous Epithelial Cells Few /hpf (<5) Urine Bacteria None seen /hpf (None Seen) Urine Mucus Few (None Seen) Urine Glucose Normal mg/dL (Normal) Microbiology Microbiology Date/Time Source Procedure Growth Status 01/13/25 14:39 Blood Blood Culture - Preliminary NO GROWTH AFTER 24 HOURS OF INCUBATION. Resulted 01/13/25 14:11 Leg Right Gram Stain - Final Resulted 01/13/25 14:11 Leg Right Wound Culture - Preliminary Resulted Assessment/Plan Assessment/Plan RLE wound, cellulitis with abscess s/p I&D and packing Cellulitis Abscess Homeless Positive amphetamines Tobacco use History of right clavicle surgery PLAN: IV Zosyn and Vancomycin Daily dressings Watch closely 01/15/2025: Continue same with Zosyn and vancomycin Wound care daily Monitor closely Plan discussed with: Patient My Orders Orders - AUTUMN HO MD Procedure Category Date Status Time Cleanse Wound With AMBER 01/14/25 In Process Wound Clean 15:14 * Dietary Consult CONS 01/14/25 Transmitted 16:16 Date of Service: Jan 15, 2025 Billing Provider: AUTUMN HO MD Common Visit Codes: NOT BILLABLE AUTUMN HO MD Jan 15, 2025 13:18
[2025-01-16] VITALS (7 sets, daily range): BP systolic 98–115; BP diastolic 70–77; PULSE 60–94; RESP 16–18; TEMP 97.6–98.4; O2SAT 93–97
[2025-01-16 05:36] LABS: Hematocrit 42.7 % (41.0-53.0); Hemoglobin 14.9 g/dL (13.5-17.5); Mean Corpuscular Hemoglobin 30.8 pg (28.0-32.0); Mean Corpuscular Volume 88.0 fL (80.0-100.0); Nucleated Red Blood Cells % 0.1 %
--- NOTE | 2025-01-16 10:01 | DVHPN2 ---
Subjective No new complaints Less edema and erythema in his leg Wound culture showed Staph aureus sensitive to all antibiotics Changes from previous H/P or p: Changes Musculoskeletal: other (Right lower extremity abscess) Objective Vitals Vital Signs Date Time Temp Pulse Resp B/P (MAP) Pulse Ox O2 Delivery O2 Flow Rate FiO2 01/16/25 09:00 98.4 73 16 114/75 (88) 97 98.4 01/16/25 07:57 Room Air* 0 21 Intake/Output Intake and Output 01/16/25 07:00 Intake Total 1800 ml Output Total 1600 ml Balance 200 ml Intake Oral 1600 ml IV Total 200 ml Output Urine Total 1600 ml # Voids 4 # Bowel Movements 2 General Appearance: Alert, Oriented X3, Cooperative, No acute distress Lungs: Clear to auscultation, Normal air movement Cardiovascular: Regular rate, Normal S1, Normal S2, No murmurs Abdomen: Normal bowel sounds, Soft, No tenderness Extremities: No edema (Right bertrand area edema and erythema with open wound with packing) Medications Current Medications Medications Dose Ordered Sig/Ignacia Route Start Time Stop Time Status Last Admin Dose Admin Vancomycin HCl 0 ml @ 0 mls/hr PER PHARMACY IV 01/13/25 16:00 Piperacillin Sod/ Tazobactam Sod 100 ml @ 25 mls/hr Q8HR IV 01/13/25 22:00 01/16/25 06:11 25 MLS/HR Acetaminophen/ Hydrocodone Bitart 1 tab Q4HP PRN PO 01/13/25 16:00 01/16/25 08:43 1 TAB Ondansetron HCl 4 mg Q4HP PRN IV 01/13/25 16:00 Enoxaparin Sodium 40 mg DAILY SC 01/14/25 10:00 01/16/25 08:33 40 MG Acetaminophen 650 mg Q6HP PRN PO 01/13/25 16:00 Morphine Sulfate 2 mg Q4HPRN PRN IV 01/13/25 16:00 Cyanocobalamin 500 mcg DAILY PO 01/14/25 10:00 01/16/25 08:33 500 MCG Cholecalciferol 5,000 unit DAILY PO 01/14/25 10:00 01/16/25 08:32 5,000 UNIT Laboratory Results Laboratory Tests 01/14/25 06:35 01/16/25 04:35 Urinalysis Test 01/13/25 14:20 Urine Color Light-yellow (Yellow) Urine Clarity Clear (Clear) Urine pH 5.5 (5.0-9.0) Urine Specific [place] 1.011 (1.001-1.035) Urine Protein Negative (Negative) Urine Ketones Negative (Negative) Urine Blood Negative /uL (Negative) Urine Nitrite Negative (Negative) Urine Bilirubin Negative (Negative) Urine Urobilinogen Normal mg/dL (Negative) Urine Leukocyte Esterase Negative /uL (Negative) Urine RBC 2 /hpf (0 - 3) Urine Microscopic WBC 2 /HPF (0-3) Urine Squamous Epithelial Cells Few /hpf (<5) Urine Bacteria None seen /hpf (None Seen) Urine Mucus Few (None Seen) Urine Glucose Normal mg/dL (Normal) Microbiology Microbiology Date/Time Source Procedure Growth Status 01/13/25 14:39 Blood Blood Culture - Preliminary NO GROWTH AFTER 48 HOURS OF INCUBATION. Resulted 01/13/25 14:11 Leg Right Gram Stain - Final Complete 01/13/25 14:11 Wound Culture - Final Staphylococcus aureus Streptococcus Group A Complete Assessment/Plan Assessment/Plan RLE wound, cellulitis with abscess s/p I&D and packing Cellulitis Abscess Homeless Positive amphetamines Tobacco use History of right clavicle surgery PLAN: IV Zosyn and Vancomycin Daily dressings Watch closely 01/15/2025: Continue same with Zosyn and vancomycin Wound care daily Monitor closely 01/16/2025: Continue IV antibiotics Wound care daily Dressing changes and packing daily Plan discussed with: Patient Date of Service: Jan 16, 2025 Billing Provider: AUTUMN HO MD Common Visit Codes: NOT BILLABLE AUTUMN HO MD Jan 16, 2025 10:01
[2025-01-16] MEDS: VANCOMYCIN 750MG KIT 100 ML IV SCH (20:37)
[2025-01-17] VITALS (7 sets, daily range): BP systolic 93–108; BP diastolic 60–71; PULSE 69–90; RESP 16–18; TEMP 97.7–98.4; O2SAT 17–100
[2025-01-17 08:22] LABS: Hematocrit 45.3 % (41.0-53.0); Hemoglobin 15.5 g/dL (13.5-17.5); Mean Corpuscular Hemoglobin 30.5 pg (28.0-32.0); Mean Corpuscular Volume 89.4 fL (80.0-100.0); Nucleated Red Blood Cells % 0.2 %
--- NOTE | 2025-01-17 11:13 | DVHPN2 ---
Subjective Patient is seen and examined at bedside Reviewed: Care Plan, H&P, Labs, Medications, Previous Orders, Radiology Changes from previous H/P or p: No Changes Musculoskeletal: other (Right lower extremity abscess) Objective Vitals Vital Signs Date Time Temp Pulse Resp B/P (MAP) Pulse Ox O2 Delivery O2 Flow Rate FiO2 01/17/25 09:00 97.8 84 17 100/67 (78) 95 97.8 01/17/25 07:45 Room Air* 0 21 Intake/Output Intake and Output 01/17/25 07:00 Intake Total 1640 ml Balance 1640 ml Intake Oral 1540 ml IV Total 100 ml # Voids 4 # Bowel Movements 1 General Appearance: Alert, Oriented X3, Cooperative, No acute distress HEENT: Atraumatic, PERRLA, EOMI, Mucous membr. moist/pink Lungs: Clear to auscultation, Normal air movement Cardiovascular: Regular rate, Normal S1, Normal S2, No murmurs, Gallops, Rubs Abdomen: Normal bowel sounds, Soft, No tenderness Extremities: No edema (Right bertrand area edema and erythema with open wound with packing) Neuro: Strength at 5/5 X4 ext Psych/Mental Status: Mental status NL Medications Current Medications Medications Dose Ordered Sig/Ignacia Route Start Time Stop Time Status Last Admin Dose Admin Vancomycin HCl 0 ml @ 0 mls/hr PER PHARMACY IV 01/13/25 16:00 Piperacillin Sod/ Tazobactam Sod 100 ml @ 25 mls/hr Q8HR IV 01/13/25 22:00 01/17/25 05:29 25 MLS/HR Acetaminophen/ Hydrocodone Bitart 1 tab Q4HP PRN PO 01/13/25 16:00 01/16/25 08:43 1 TAB Ondansetron HCl 4 mg Q4HP PRN IV 01/13/25 16:00 Enoxaparin Sodium 40 mg DAILY SC 01/14/25 10:00 01/17/25 08:20 40 MG Acetaminophen 650 mg Q6HP PRN PO 01/13/25 16:00 Morphine Sulfate 2 mg Q4HPRN PRN IV 01/13/25 16:00 Cyanocobalamin 500 mcg DAILY PO 01/14/25 10:00 01/17/25 08:21 500 MCG Cholecalciferol 5,000 unit DAILY PO 01/14/25 10:00 01/17/25 08:21 5,000 UNIT Vancomycin HCl 100 ml @ 100 mls/hr Q12H IV 01/16/25 20:00 01/17/25 08:19 100 MLS/HR Laboratory Results Laboratory Tests 01/14/25 06:35 01/17/25 07:45 Urinalysis Test 01/13/25 14:20 Urine Color Light-yellow (Yellow) Urine Clarity Clear (Clear) Urine pH 5.5 (5.0-9.0) Urine Specific [place] 1.011 (1.001-1.035) Urine Protein Negative (Negative) Urine Ketones Negative (Negative) Urine Blood Negative /uL (Negative) Urine Nitrite Negative (Negative) Urine Bilirubin Negative (Negative) Urine Urobilinogen Normal mg/dL (Negative) Urine Leukocyte Esterase Negative /uL (Negative) Urine RBC 2 /hpf (0 - 3) Urine Microscopic WBC 2 /HPF (0-3) Urine Squamous Epithelial Cells Few /hpf (<5) Urine Bacteria None seen /hpf (None Seen) Urine Mucus Few (None Seen) Urine Glucose Normal mg/dL (Normal) Microbiology Microbiology Date/Time Source Procedure Growth Status 01/13/25 14:39 Blood Blood Culture - Preliminary NO GROWTH AFTER 72 HOURS OF INCUBATION. Resulted 01/13/25 14:11 Leg Right Gram Stain - Final Complete 01/13/25 14:11 Wound Culture - Final Staphylococcus aureus Streptococcus Group A Complete Labs and/or images reviewed: Labs reviewed by me Assessment/Plan Assessment/Plan RLE wound, cellulitis with abscess s/p I&D and packing Cellulitis Abscess Homeless Positive amphetamines Tobacco use History of right clavicle surgery PLAN: IV Zosyn and Vancomycin Daily dressings Watch closely 01/15/2025: Continue same with Zosyn and vancomycin Wound care daily Monitor closely 01/16/2025: Continue IV antibiotics Wound care daily Dressing changes and packing daily 01/17/2025: Continue current management. Continuing with IV antibiotics Zosyn and vancomycin Daily dressing and packing Discharge planning Continuing to monitor WBC This medical document was created using an electronic medical record system with [employer] direct computerized dictation system. Although this document has been carefully reviewed, there may still be some phonetic and typographical errors. These areas are purely typographical due to imperfections of the software programs, and do not reflect any compromise in the patient's medical care. Plan discussed with: Patient Date of Service: Jan 17, 2025 Billing Provider: MAURA CARIAS MD Common Visit Codes: [id number] INP/OBS CARE(HIGH) MAURA CARIAS MD Jan 17, 2025 11:13
--- NOTE | 2025-01-17 11:30 | MEDREC ---
[facility] Intervention Section I [facility] Intervention: Review courses of therapy (Please consider de-escalate antibiotics based on wound culture result (Recommend cefazolin). Status post I&D, antibiotic is usually not necessary, but may cover for 5 days if clinically indicated ) [facility] Jan 17, 2025 11:30
[2025-01-17] MEDS: PIPERACILLIN-TAZOB 3.375GM 100 ML IV SCH (21:37)
[2025-01-18 01:00] VITALS: BP 109/71; PULSE 68; RESP 18; TEMP 97.6; O2SAT 95
[2025-01-18 05:00] VITALS: BP 106/73; PULSE 68; RESP 16; TEMP 97.8; O2SAT 96
[2025-01-18 08:00] VITALS: PULSE 86; RESP 18; O2SAT 97
[2025-01-18 09:00] VITALS: BP 105/54; PULSE 78; RESP 17; TEMP 97.5; O2SAT 94
--- NOTE | 2025-01-18 12:19 | DVHPN2 ---
Subjective Patient is seen and examined at bedside. No complains today. Reviewed: Care Plan, H&P, Labs, Medications, Previous Orders, Radiology Changes from previous H/P or p: No Changes Musculoskeletal: other (Right lower extremity abscess) Objective Vitals Vital Signs Date Time Temp Pulse Resp B/P (MAP) Pulse Ox O2 Delivery O2 Flow Rate FiO2 01/18/25 09:00 97.5 78 17 105/54 (71) 94 97.5 01/18/25 08:00 Room Air* 0 21 Intake/Output Intake and Output 01/18/25 07:00 Intake Total 1570 ml Output Total 250 ml Balance 1320 ml Intake Oral 1270 ml IV Total 300 ml Output Urine Total 250 ml # Voids 5 # Bowel Movements 2 General Appearance: Alert, Oriented X3, Cooperative, No acute distress HEENT: Atraumatic, PERRLA, EOMI, Mucous membr. moist/pink Lungs: Clear to auscultation, Normal air movement Cardiovascular: Regular rate, Normal S1, Normal S2, No murmurs, Gallops, Rubs Abdomen: Normal bowel sounds, Soft, No tenderness Extremities: No edema (Right bertrand area edema and erythema with open wound with packing) Neuro: Strength at 5/5 X4 ext Psych/Mental Status: Mental status NL Medications Current Medications Medications Dose Ordered Sig/Ignacia Route Start Time Stop Time Status Last Admin Dose Admin Vancomycin HCl 0 ml @ 0 mls/hr PER PHARMACY IV 01/13/25 16:00 Acetaminophen/ Hydrocodone Bitart 1 tab Q4HP PRN PO 01/13/25 16:00 01/18/25 09:49 1 TAB Ondansetron HCl 4 mg Q4HP PRN IV 01/13/25 16:00 Enoxaparin Sodium 40 mg DAILY SC 01/14/25 10:00 01/18/25 09:48 40 MG Acetaminophen 650 mg Q6HP PRN PO 01/13/25 16:00 Morphine Sulfate 2 mg Q4HPRN PRN IV 01/13/25 16:00 Cyanocobalamin 500 mcg DAILY PO 01/14/25 10:00 01/18/25 09:56 500 MCG Cholecalciferol 5,000 unit DAILY PO 01/14/25 10:00 01/18/25 09:47 5,000 UNIT Piperacillin Sod/ Tazobactam Sod 100 ml @ 25 mls/hr Q6H IV 01/17/25 21:00 01/18/25 09:47 25 MLS/HR Vancomycin HCl 250 ml @ 200 mls/hr Q12H IV 01/18/25 13:00 Laboratory Results Laboratory Tests 01/14/25 06:35 01/17/25 07:45 01/18/25 06:40 Urinalysis Test 01/13/25 14:20 Urine Color Light-yellow (Yellow) Urine Clarity Clear (Clear) Urine pH 5.5 (5.0-9.0) Urine Specific [place] 1.011 (1.001-1.035) Urine Protein Negative (Negative) Urine Ketones Negative (Negative) Urine Blood Negative /uL (Negative) Urine Nitrite Negative (Negative) Urine Bilirubin Negative (Negative) Urine Urobilinogen Normal mg/dL (Negative) Urine Leukocyte Esterase Negative /uL (Negative) Urine RBC 2 /hpf (0 - 3) Urine Microscopic WBC 2 /HPF (0-3) Urine Squamous Epithelial Cells Few /hpf (<5) Urine Bacteria None seen /hpf (None Seen) Urine Mucus Few (None Seen) Urine Glucose Normal mg/dL (Normal) Microbiology Microbiology Date/Time Source Procedure Growth Status 01/16/25 06:40 Nose MRSA Screen - Final Complete 01/13/25 14:39 Blood Blood Culture - Preliminary NO GROWTH AFTER 72 HOURS OF INCUBATION. Resulted Labs and/or images reviewed: Labs reviewed by me Assessment/Plan Assessment/Plan RLE wound, cellulitis with abscess s/p I&D and packing Cellulitis Abscess Homeless Positive amphetamines Tobacco use History of right clavicle surgery PLAN: IV Zosyn and Vancomycin Daily dressings Watch closely 01/15/2025: Continue same with Zosyn and vancomycin Wound care daily Monitor closely 01/16/2025: Continue IV antibiotics Wound care daily Dressing changes and packing daily 01/17/2025: Continue current management. Continuing with IV antibiotics Zosyn and vancomycin Daily dressing and packing Discharge planning Continuing to monitor WBC 01/18/2025 Continue current management. Continue IV antibiotic: Zosyn, and vancomycin Continue wound care. Discharge planning. This medical document was created using an electronic medical record system with [employer] direct computerized dictation system. Although this document has been carefully reviewed, there may still be some phonetic and typographical errors. These areas are purely typographical due to imperfections of the software programs, and do not reflect any compromise in the patient's medical care. Plan discussed with: Patient Date of Service: Jan 18, 2025 Billing Provider: MAURA CARIAS MD Common Visit Codes: [id number] INP/OBS CARE(HIGH) MAURA CARIAS MD Jan 18, 2025 12:19
[2025-01-18] MEDS: VANCOMYCIN 1.25GM/250ML 250 ML IV SCH (12:59)
[2025-01-18 13:00] VITALS: BP 105/61; PULSE 71; RESP 17; TEMP 98.2; O2SAT 95
--- NOTE | 2025-01-18 14:14 | MEDREC ---
[facility] ASP Intervention Section I [facility] ASP Intervention: Deescalate AB based on CS (Called Dr. Atiya Chapman regarding the wound culture result and asked for de-escalation. Dr. Chapman wanted to keep the same antibiotics until the patient is discharged tomorrow.) [facility] RES[facility] Jan 18, 2025 14:14
[2025-01-18 21:00] VITALS: BP 96/67; PULSE 75; RESP 18; TEMP 98.2; O2SAT 94
[2025-01-19 01:00] VITALS: BP 97/67; PULSE 62; RESP 18; TEMP 97.9; O2SAT 94
[2025-01-19 05:00] VITALS: BP 103/77; PULSE 67; RESP 18; TEMP 97.8; O2SAT 97
[2025-01-19 08:00] VITALS: PULSE 86; RESP 18; O2SAT 98
[2025-01-19 09:00] VITALS: BP 100/67; PULSE 59; RESP 17; TEMP 97.6; O2SAT 96
[2025-01-19] MEDS ORDERED: CLIN150C PO (11:55)
--- NOTE | 2025-01-19 11:59 | DVHDS2 ---
Discharge Summary Date of Admission Jan 13, 2025 at 15:55 Date of Discharge: Jan 19, 2025 Admitting Diagnosis RLE wound, cellulitis with abscess s/p I&D and packing Cellulitis Abscess Homeless Positive amphetamines Tobacco use History of right clavicle surgery Labs/Diagnostic Data: Laboratory Results Test 01/19/25 06:01 01/18/25 06:40 01/17/25 07:45 01/16/25 04:35 Creatinine 0.97 mg/dL (0.700-1.30) Glomerular Filtration Rate Calc 95 mL/min (>90) Vancomycin Level Trough 8.8 ug/mL (5-10) White Blood Count 7.9 10^3/uL (4.4-10.8) Red Blood Count 5.07 10^6/uL (4.5-5.90) Hemoglobin 15.5 g/dL (13.5-17.5) Hematocrit 45.3 % (41.0-53.0) Mean Corpuscular Volume 89.4 fL (80.0-100.0) Mean Corpuscular Hemoglobin 30.5 pg (28.0-32.0) Mean Corpuscular Hemoglobin Concent 34.1 g/dL (32.0-36.0) Red Cell Distribution Width 13.3 % (11.8-14.3) Platelet Count 343 10^3/uL (140-450) Mean Platelet Volume 7.9 fL (6.9-10.8) Neutrophils (%) (Auto) 61.8 % (37.0-80.0) Lymphocytes (%) (Auto) 15.8 % (10.0-50.0) Monocytes (%) (Auto) 13.4 % (0.0-12.0) Eosinophils (%) (Auto) 8.1 % (0.0-7.0) Basophils (%) (Auto) 0.9 % (0.0-2.0) Neutrophils # (Auto) 4.9 10 ^3/uL (1.6-8.6) Lymphocytes # (Auto) 1.2 10 ^3/uL (0.4-5.4) Monocytes # (Auto) 1.1 10 ^3/uL (0-1.3) Eosinophils # (Auto) 0.6 10 ^3/uL (0-0.8) Basophils # (Auto) 0.1 10 ^3/uL (0-0.2) Nucleated Red Blood Cells 0.2 % Random Vancomycin Level < 3.0 ug/mL (5-10) Test 01/14/25 06:35 01/13/25 14:34 01/13/25 14:20 Sodium Level 140 mmol/L (136-145) Potassium Level 3.5 mmol/L (3.5-5.1) Chloride Level 104 mmol/L (98-107) Carbon Dioxide Level 25 mmol/L (20-31) Anion Gap 11 (5-15) Blood Urea Nitrogen 17 mg/dL (9-23) BUN/Creatinine Ratio 19.1 (10.0-20.0) Serum Glucose 116 mg/dL (74-106) Hemoglobin A1c 5.3 % A1C (<5.7) Calcium Level 8.5 mg/dL (8.7-10.4) Total Bilirubin 1.0 mg/dL (0.2-1.0) Aspartate Amino Transferase (AST) 18 U/L (13-40) Alanine Aminotransferase (ALT) 15 U/L (7-40) Alkaline Phosphatase 97 U/L (46-116) Total Protein 6.7 g/dL (5.7-8.2) Albumin 3.6 g/dL (3.2-4.8) Lactic Acid Level 1.9 mmol/L (0.4-2.0) Urine Color Light-yellow (Yellow) Urine Clarity Clear (Clear) Urine pH 5.5 (5.0-9.0) Urine Specific [place] 1.011 (1.001-1.035) Urine Protein Negative (Negative) Urine Ketones Negative (Negative) Urine Blood Negative /uL (Negative) Urine Nitrite Negative (Negative) Urine Bilirubin Negative (Negative) Urine Urobilinogen Normal mg/dL (Negative) Urine Leukocyte Esterase Negative /uL (Negative) Urine RBC 2 /hpf (0 - 3) Urine Microscopic WBC 2 /HPF (0-3) Urine Squamous Epithelial Cells Few /hpf (<5) Urine Bacteria None seen /hpf (None Seen) Urine Mucus Few (None Seen) Urine Glucose Normal mg/dL (Normal) Urine Opiates Screen Neg (NEGATIVE) Urine Fentanyl Screen Neg (NEGATIVE) Urine Barbiturates Screen Neg (NEGATIVE) Urine Phencyclidine Screen Neg (NEGATIVE) Urine Amphetamines Screen Pos (NEGATIVE) Urine Benzodiazepines Screen Neg (NEGATIVE) Urine Cocaine Screen Neg (NEGATIVE) Urine Cannabinoids Screen Neg (NEGATIVE) Other Laboratory Tests 01/19/25 06:01 01/17/25 07:45 01/14/25 06:35 Brief Hx & Hospital Course: This is a 49 years old male with past medical history of right clavicle surgery came to emergency department because right lower extremity wound and abscess started four day prior to this admission. The patient said is very painful and throbbing. The patient had drainage come out like pus and blood. The patient live in the homeless retirement and stay in the top bunk. The patient was admitted. The abscess was I and D. bacteria grow MSSA. The patient on vancomycin and Zosyn. Today the patient doing well. I am going to discharge patient. can worker had worked on his homeless retirement because the sharp used to live in does not have a bed for him anymore. We find another retirement called [id number] and he will be discharged today. Activity as tolerated. Diet per home diet. Recommend low-salt low-cholesterol diet. I will continuing oral antibiotic for 10 days with clindamycin. I am recommend the patient to see his primary care physician 1-2 weeks. Physical exam: HEENT: Normocephalic atraumatic pupils equal react to light and accommodation. Extraocular muscles intact, conjunctiva pink, oropharynx moist, no thrush, no exudate. Lymphatic: No lymphadenopathy Cardiovascular exam: S1, S2 was heard. No murmurs, rubs, gallops Lung: Clear on auscultation bilaterally, no wheeze, rale, rhonchi. GI: Abdominal soft, nondistended, nontenderness, positive bowel sounds. Extremity: No crepitus, cyanosis, edema. Pedal pulses present bilateral. Full range of motion. Skin: Normal turgor, no rash. Psych: Alert, oriented x3. Neurology: No focal deficits, cranial nerve II to XII grossly intact. This medical document was created using an electronic medical record system with [employer] direct computerized dictation system. Although this document has been carefully reviewed, there may still be some phonetic and typographical errors. These areas are purely typographical due to imperfections of the software programs, and do not reflect any compromise in the patient's medical care. Condition at Discharge: Stable Final Diagnosis/Problems List RLE wound, cellulitis with abscess s/p I&D and packing Cellulitis Abscess Homeless Positive amphetamines Tobacco use History of right clavicle surgery Discharge Disposition: Clear path home Discharge Instruct/Medications Diet: Regular Activity: No Restrictions, As Tolerated Follow Up/Referral: pcp 1-2 weeks Medications: clindamycin 150mg PO tid x 10 days Scheduled Cholecalciferol (Vitamin D3), 1 CAP PO DAILY, (Reported) Clindamycin Hcl (Cleocin), 1 CAP PO TID Cyanocobalamin (Gnp Vitamin B12), 1 TAB PO DAILY, (Reported) Discharge Statement: "Patient was advised to return to the ER or call 911 if any headaches, dizziness, shortness of breath, chest pain, abdominal pain, bleeding, fevers, or worsening of medical condition. Patient was counseled about treatment plan, medications, possible side effects, patientverbalized understanding. All questions were answered to the best of my ability. This discharge took greater then 30 minutes in planning, reviewing documentation, counseling the patient, and discussing with other team members." ASSESSMENT ASSESSMENT Assessment celulitis Date of Service: Jan 19, 2025 Billing Provider: MAURA CARIAS MD Common Visit Codes: [id number]-[id number] DISCH DAY >30min MAURA CARIAS MD Jan 19, 2025 11:59
[2025-01-19 13:00] VITALS: BP 109/84; PULSE 73; RESP 17; TEMP 98; O2SAT 97
[2025-01-19 13:19] VITALS: TEMP 36.4
== END 2025-01-19 15:38 | disposition home or self-care (01) | DRG 603 ==
LOC: ER 13:28 → OVERFLOW 15:55 → WEST WING 18:34
PROVIDERS: ADMIT Internal Medicine; ATTEND Internal Medicine
PROC: 0Y9H0ZZ Drainage of Right Lower Leg, Open Approach (ICD-10-PCS; principal; 2025-01-13)
DX: L02.415 Cutaneous abscess of right lower limb (principal); Z59.01 Sheltered homelessness; L03.115 Cellulitis of right lower limb; F17.210 Nicotine dependence, cigarettes, uncomplicated
CPT/HCPCS: 10060; 36415; 80048; 80053; 80202; 80307; 81001; 82565; 83036; 83605; 85025; 87040; 87077; 87081; 87186; 87205; 93971; G0378; J1885; J2543; J3490